=== PATIENT | female | born 1995 | race Caucasian/White ===

== ENCOUNTER 2017-11-12 00:29 | Emergency (ER) | payer SELFPAY ==
[~2017-11-12] VITALS: Ht 167.6 cm; Wt 54.4 kg
--- NOTE | 2017-11-12 00:41 | NUR ---
BIBRA 89 C/O SYNCOPAL EPISODE X 20 MINS TRIAL JUSTICE. PT ADMITS TO SMOKING MARIJUANA. NO SOB AT THIS TIME W/ CLEAR LUNG SOUNDS. NO PAIN. WILL CONTINUE TO MONITOR FOR ANY CHANGES DURING THE SHIFT
--- NOTE | 2017-11-12 01:28 | NUR ---
PT IN STABLE CONDITION. WILL CONTINUE TO MONITOR FOR ANY CHANGES
[2017-11-12] MEDS ORDERED: IV NS 0.9% 1,000 ML BAG IV ONE (01:30)
[2017-11-12 01:45] VITALS: BP 106/71
== END 2017-11-12 01:45 | disposition home or self-care (01) ==
LOC: ER 00:30
DX: R55 Syncope and collapse (principal); R42 Dizziness and giddiness; F41.9 Anxiety disorder, unspecified; F32.9 Major depressive disorder, single episode, unspecified
CPT/HCPCS: 93005; 96360; 99284; A4606; J7030; Z7610

== ENCOUNTER 2018-10-19 14:29 | Emergency (ER) | payer BC ==
[~2018-10-19] VITALS: Ht 170.2 cm; Wt 55.3 kg
[2018-10-19] MEDS ORDERED: KETOROLAC TROMETHAMINE INJ 30 MG/ML VIAL ONE (14:52)
[2018-10-19] MEDS ORDERED: HYDROCODONE/APAP 5/325MG 1 EACH TABLET ONE (14:52)
[2018-10-19] MEDS ORDERED: KETOROLAC TROMETHAMINE INJ 60 MG/2 ML VIAL IM ONE (15:00)
[2018-10-19] MEDS ORDERED: HYDROCODONE/APAP 5/325MG 1 EACH TABLET PO ONE (15:00)
--- NOTE | 2018-10-19 15:04 | NUR ---
MENSTRUAL CRAMPING, NAUSEA SINCE THIS MORNING. PT AAOX4, VSS. RR EVEN & UNLABORED, NAD NOTED @ THIS TIME. MEDICATED FOR PAIN PER PA ORDER, PT KARAN WELL.
[2018-10-19 16:41] VITALS: BP 108/68
--- NOTE | 2018-10-19 16:41 | NUR ---
Patient discharged to home in stable condition. Written and verbal after care instructions given. Patient verbalizes understanding of instruction.
[2018-10-19 16:42] LABS: APPEARANCE,URINE Slightly Cloudy (CLEAR); BILIRUBIN,URINE Negative (NEGATIVE); BLOOD, URINE Large Ery/uL (NEGATIVE); COLOR,URINE Pink (YELLOW); KETONES,URINE Negative (NEGATIVE); LEUKOCYTE ESTERASE ,URINE Trace (NEGATIVE); NITRITE, URINE Negative (NEGATIVE); PH,URINE 6.5 (5.0-8.0); PROTEIN,URINE 30 mg/dl (NEGATIVE); UGLUCOSE Negative (NEGATIVE); UROBILINOGEN,URINE 0.2 EU/dL (0.2)
[2018-10-19 17:09] LABS: BACTERIA,URINE Few /HPF (None Seen); RBC,URINE TOO NUMEROUS TO COUN /HPF (0-2); SQUAMOUS EPITHELIAL CELL,UR Few /HPF (None Seen)
== END 2018-10-19 16:42 | disposition home or self-care (01) ==
LOC: ER 14:30
DX: N94.6 Dysmenorrhea, unspecified (principal); F41.9 Anxiety disorder, unspecified; F32.9 Major depressive disorder, single episode, unspecified; R55 Syncope and collapse
CPT/HCPCS: 81000-TC; 84703-TC; J1885